=== PATIENT | female | born 2000 | race Two or more races ===

== ENCOUNTER → 2019-07-18 | Outpatient (CLI) | payer OTHER ==
[~2019-07-18] MED LIST: 0.9 % SODIUM CHLORIDE 10 ML VIAL ONE; IOHEXOL 300 MG/ML 50 ML VIAL. ONE; LIDOCAINE 1% PF 30 ML VIAL. ONE; METH-38 PO; methylPREDNISolone ACETATE 80 MG/ML VIAL. ONE
[2019-07-18 16:02] VITALS: BP 110/69
== END ==
LOC: SURG 15:12
PROVIDERS: ATTEND Anesthesiology Pain Medicine
DX: M51.16 Intervertebral disc disorders with radiculopathy, lumbar region (principal)
CPT/HCPCS: 62323; J1040; J2001; Q9967